=== PATIENT | female | born 1955 | race Caucasian/White ===

== ENCOUNTER 2017-09-08 07:36 | Observation (INO) | payer OTHER, SELFPAY ==
[2017-09-08 08:10] LABS: #Basophils 0.1 thou/uL (0.0-0.2); #Eosinphils 0.2 thou/uL (0.0-0.7); #Monocytes 0.5 thou/uL (0.11-0.59); #Neutrophils 5.1 thou/uL (1.40-6.50); %Eosinophils 2.7 % (0.0-10.0); %Lymphocytes 25.3 % (21.0-51.0); %Monocytes 6.3 % (0.0-10.0); %Neutrophils 64.8 % (42.0-75.0); Hemoglobin 13.7 g/dL (12.0-16.0); Mean Corpuscular HGB CONC 32.7 g/dL (32.0-36.0); Mean Corpuscular Hemoglobin 30.4 pg (27.0-31.0); Mean Platelet Volume 7.7 fL (7.4-10.4); Platelet Count 274 thou/uL (130-400); RBC Distribution Width 11.1 % (11.5-14.5); Red Blood Cell (RBC) Count 4.51 mill/uL (4.20-5.40); White Blood Cell (WBC) Count 7.9 thou/uL (4.8-10.8)
[2017-09-08 08:17] LABS: PTT 25.2 SEC (22.9-36.1); Prothrombin Time 13.2 SEC (12.0-14.7)
[2017-09-08 08:31] LABS: ALT (SGPT) 43 U/L (8-55); AST (SGOT) 31 U/L (5-34); Albumin 4.1 g/dL (3.5-5.0); Alkaline Phosphatase 24 U/L (40-150); Anion Gap 12 mmol/L (10-20); BUN (Urea Nitrogen) 11 mg/dL (9.8-20.1); Bilirubin, Total 1.1 mg/dL (0.2-1.2); CK (CPK) 60 U/L (29-168); Calc. Creatinine Clearance 0 mL/min (70-130); Calcium 9.8 mg/dL (7.8-10.44); Carbon Dioxide 24 mmol/L (22-29); Chloride 105 mmol/L (98-107); Estimated GFR-MDRD 87; Globulin 2.8 g/dL (2.4-3.5); Glucose 99 mg/dL (70-105); Potassium 3.6 mmol/L (3.5-5.1); Protein, Total 6.9 g/dL (6.0-8.3); Sodium 137 mmol/L (136-145)
[2017-09-08 09:58] LABS: Pregnancy Test - Urine (BHCG) Negative (Negative); Pregu Control Background? CLEAR/WHITE (CLR/WHITE); Pregu Control Bar Appear? YES (CONTROL BAR); Specific Gravity 1.006 (1.002-1.036)
[2017-09-08 13:06] VITALS: BMI 26.2
[2017-09-08] MEDS ORDERED: Acetaminophen 325 MG TAB PO PRN (13:17)
[2017-09-08] MEDS ORDERED: Acetaminophen 500 MG TAB PO PRN (13:30)
[2017-09-08] MEDS ORDERED: TETANUS AND DIPHTHERIA TOX/PF 0.5 ML DISP.SYRIN IM ONE (13:30)
[2017-09-08] MEDS ORDERED: Ondansetron HCl/PF 4 MG/2 ML Vial IVP PRN (13:30)
[2017-09-08] MEDS ORDERED: diphenhydrAMINE 50 MG/ML VIAL IVP PRN (13:30)
[2017-09-08 19:56] LABS: Platelet Count 266 thou/uL (130-400)
[2017-09-08 20:04] LABS: PTT 25.3 SEC (22.9-36.1); Prothrombin Time 13.3 SEC (12.0-14.7)
[2017-09-08] MEDS: HYDROcodone/Acetaminophen 5/325 mg Tablet PO PRN (20:28)
[2017-09-09] MEDS: HYDROcodone/Acetaminophen 5/325 mg Tablet PO PRN ×2 (10:19→19:51)
--- NOTE | 2017-09-09 13:19 | PDOC.PN ---
- Subjective Encounter Start Date: 09/09/17 Encounter Start Time: 11:30 Pt seen by ortho this AM. no more constant pain, but lower right ankle area more numb. can barely move toes and ankle due to weakness, no pain. Tender, redness 75% up anterior tibial area, tender to palpation to dorsum of foot. PT puls eintact, cannot feel DP. No F/C, no N/V/D/C, no CP or SOB. all systems reviewed and neg for all x as above - Objective MAR Reviewed: Yes Vital Signs & Weight: Vital Signs (12 hours) Temp Pulse Resp BP BP Pulse Ox 09/09/17 11:18 98.3 F 85 12 118/53 L 94 L 09/09/17 07:47 97.8 F 69 16 103/59 L 97 09/09/17 07:29 98.1 F 73 16 09/09/17 03:48 98.1 F 73 16 106/50 L 97 Weight Weight 147 lb 12.8 oz I&O: 09/08/17 09/09/17 09/10/17 06:59 06:59 06:59 Intake Total 665 Output Total 1300 Balance -635 Result Diagrams: 09/08/17 19:50 09/08/17 08:00 Phys Exam - Physical Examination Constitutional: NAD HEENT: PERRLA, moist MMs, sclera anicteric, oral pharynx no lesions Neck: no nodes, no JVD, supple, full ROM Respiratory: no wheezing, no rales, no rhonchi, clear to auscultation bilateral Cardiovascular: RRR, no significant murmur, no rub Gastrointestinal: soft, non-tender, no distention, positive bowel sounds Musculoskeletal: pulses present, edema present Neurological: non-focal, normal sensation, moves all 4 limbs Lymphatic: no nodes Psychiatric: normal affect, A&O x 3 Skin: normal turgor Dx/Plan - Plan cont current plan of care, plan discussed w/ family, out of bed/ambulate * . continue to observe tonight
--- NOTE | 2017-09-09 14:23 | EKG ---
Test Reason : Blood Pressure : / mmHG Vent. Rate : 075 BPM Atrial Rate : 075 BPM P-R Int : 122 ms QRS Dur : 080 ms QT Int : 386 ms P-R-T Axes : 044 029 063 degrees QTc Int : 431 ms Normal sinus rhythm Possible Left atrial enlargement Borderline ECG Confirmed by CORAL CARTER, SAM ([id number]), scientific editor TIGRE MADRIGAL ([id number] on 09/09/2017 2:23:37 PM Referred By: Confirmed By:SAM MONCADA MD
--- NOTE | 2017-09-09 17:06 | CON ---
DATE OF CONSULTATION: 09/09/2017 HISTORY OF PRESENT ILLNESS: Ms. Mcmanus is a 61-year-old female who next day morning at approximatel y 7:00 a.m. over 24 hours was bitten by a copperhead on the anterior lateral aspect of the right lowe r leg and ankle. The patient developed swelling in the right foot. She was brought to the hospital. She continues to have swelling in the right foot. Minimal swelling in the right ankle. She has no numbness in the foot. I was asked to consult concerning for possible compartment syndrome. PHYSICAL EXAMINATION: GENERAL: Patient has an apparent snake bites over the anterior lateral aspect of the right lower leg approximately 2 cm apart. There is no surrounding erythema. There is some swelling in the foot, bu t the compartments in the foot are fairly soft. The patient is able to flex and extend the toes and she has good sensation and good peripheral pulses. Good capillary refill. IMPRESSION: Status post snake bite to the right ankle. The patient does have swelling in the foot, but does not have compartment syndrome. PLAN: The patient will continue to elevate the right foot. They will continue with care of the snak e bite. The swelling will gradually decrease. No followup is needed.
[2017-09-10 04:45] LABS: #Basophils 0.1 thou/uL (0.0-0.2); #Eosinphils 0.3 thou/uL (0.0-0.7); #Lymphocytes 2.1 thou/uL (1.20-3.40); #Monocytes 0.7 thou/uL (0.11-0.59); #Neutrophils 3.9 thou/uL (1.40-6.50); %Basophils 0.9 % (0.0-1.0); %Lymphocytes 30.4 % (21.0-51.0); %Monocytes 9.6 % (0.0-10.0); %Neutrophils 55.2 % (42.0-75.0); Hemoglobin 14.2 g/dL (12.0-16.0); Mean Corpuscular HGB CONC 33.3 g/dL (32.0-36.0); Mean Corpuscular Hemoglobin 30.9 pg (27.0-31.0); Mean Corpuscular Volume 92.5 fL (78.0-98.0); Mean Platelet Volume 7.3 fL (7.4-10.4); Platelet Count 272 thou/uL (130-400); RBC Distribution Width 11.3 % (11.5-14.5); Red Blood Cell (RBC) Count 4.59 mill/uL (4.20-5.40)
[2017-09-10 04:50] LABS: PTT 26.3 SEC (22.9-36.1); Prothrombin Time 13.3 SEC (12.0-14.7)
[2017-09-10 04:57] LABS: Anion Gap 12 mmol/L (10-20); BUN (Urea Nitrogen) 14 mg/dL (9.8-20.1); Calc. Creatinine Clearance 90 mL/min (70-130); Calcium 9.2 mg/dL (7.8-10.44); Carbon Dioxide 27 mmol/L (22-29); Chloride 105 mmol/L (98-107); Estimated GFR-MDRD 85; Glucose 92 mg/dL (70-105); Magnesium 2.2 mg/dL (1.6-2.6); Potassium 4.2 mmol/L (3.5-5.1); Sodium 140 mmol/L (136-145)
--- NOTE | 2017-09-10 17:35 | PDOC.PN ---
- Subjective Encounter Start Date: 09/10/17 Encounter Start Time: 17:33 Ms. Mcmanus was seen today in follow-up. She has less swelling of the ankle. She has been able to wiggle her toes some. - Objective MAR Reviewed: Yes Vital Signs & Weight: Vital Signs (12 hours) Temp Pulse Resp BP BP Pulse Ox 09/10/17 11:00 98.0 F 69 16 123/76 95 09/10/17 08:00 98.2 F 66 16 120/57 L 99 09/10/17 07:45 98.2 F 66 16 120/57 L 99 Weight Weight 147 lb 12.8 oz I&O: 09/09/17 09/10/17 09/11/17 06:59 06:59 06:59 Intake Total 665 1050 Output Total 1300 1550 Balance -635 -500 Result Diagrams: 09/10/17 04:26 09/10/17 04:26 Phys Exam - Physical Examination HEENT: PERRLA Respiratory: no wheezing, no rales, no rhonchi, clear to auscultation bilateral Cardiovascular: RRR, no significant murmur, no rub Gastrointestinal: soft, non-tender, positive bowel sounds Musculoskeletal: edema present + swelling around the right ankle, good capillary refill sensation has improved Dx/Plan (1) Bite, snake, venomous Code(s): T63.004A - TOXIC EFFECT OF UNSP SNAKE VENOM, UNDETERMINED, INIT ENCNTR Status: Acute - Plan * Snake bite- improved * She is stable for discharge home. local care was discussed, as well as warning signs.
[2017-09-10 19:52] VITALS: BP 130/77; TEMP 98.7
--- NOTE | 2017-09-11 01:20 | DIS ---
PRIMARY CARE PHYSICIAN: The patient does not have a primary care physician. DATE OF ADMISSION: 09/08/2017 DATE OF DISCHARGE: 09/10/2017 DISCHARGE DISPOSITION: Home. PRIMARY DISCHARGE DIAGNOSIS: Snake bite. DISCHARGE MEDICATIONS: None. She can use ibuprofen or Naprosyn as needed [id number]. CODE STATUS: FULL CODE. ALLERGIES: SULFA. HOSPITAL COURSE: Ms. Mcmanus is a pleasant 61-year-old female that has no significant past medical h istory, who was stepping out of her porch when she got bitten by snake. She is not sure if it was a copperhead or rattlesnake, but noticed immediate pain and swelling in the right ankle and came to the emergency room for evaluation. She was placed in observation and lab work was obtained. There was no evidence of any coagulopathy. She was also evaluated by Orthopedic Surgery for concerns for poten tial compartment syndrome. It was deemed that there was no evidence of compartment syndrome and she was monitored for another 24 hours and was subsequently able to be discharged home. She will be disc harged home in a stable condition and was instructed to get close outpatient followup.
== END 2017-09-10 19:05 | disposition home or self-care (01) ==
LOC: ERS 07:36 → 2SW 10:30
PROVIDERS: ADMIT Internal Medicine Infectious Disease; ATTEND Internal Medicine Infectious Disease
DX: T63.001A Toxic effect of unspecified snake venom, accidental (unintentional), initial encounter (principal); Z88.2 Allergy status to sulfonamides; Y92.008 Other place in unspecified non-institutional (private) residence as the place of occurrence of the external cause
CPT/HCPCS: 36415; 80048; 80053; 81025; 82550; 83735; 85025; 85384; 85610; 85730; 93005; G0378; J2270

== ENCOUNTER 2020-12-14 21:41 | Emergency (ER) | payer SELFPAY ==
[2020-12-14 22:18] LABS: #Basophils 0.1 thou/uL (0.0-0.2); #Eosinphils 0.2 thou/uL (0.0-0.7); #Lymphocytes 2.3 thou/uL (1.20-3.40); #Monocytes 0.9 thou/uL (0.11-0.59); #Neutrophils 7.5 thou/uL (1.40-6.50); %Basophils 0.8 % (0.0-1.0); %Eosinophils 2.2 % (0.0-10.0); %Lymphocytes 20.5 % (21.0-51.0); %Monocytes 7.8 % (0.0-10.0); %Neutrophils 68.6 % (42.0-75.0); Hemoglobin 15.2 g/dL (12.0-16.0); Mean Corpuscular HGB CONC 33.8 g/dL (32.0-36.0); Mean Corpuscular Hemoglobin 31.4 pg (27.0-31.0); Mean Platelet Volume 8.4 fL (7.4-10.4); Platelet Count 305 thou/uL (130-400); RBC Distribution Width 11.2 % (11.5-14.5); Red Blood Cell (RBC) Count 4.85 mill/uL (4.20-5.40); White Blood Cell (WBC) Count 10.9 thou/uL (4.8-10.8)
== END 2020-12-14 23:39 | disposition home or self-care (01) ==
LOC: ERS 21:41
DX: N93.9 Abnormal uterine and vaginal bleeding, unspecified (principal)
CPT/HCPCS: 36415; 85025; 86900; 86901; 99284

== ENCOUNTER 2023-05-10 12:34 | Emergency (ER) | payer OTHER, SELFPAY | END 2023-05-10 16:02 | disposition home or self-care (01) | LOC: ERS 12:34 | DX: L25.9 Unspecified contact dermatitis, unspecified cause (principal); Z55.6 Problems related to health literacy | CPT/HCPCS: 99282 ==